=== PATIENT | female | born 1990 | race Caucasian/White ===

== ENCOUNTER 2017-04-10 07:58 | Inpatient (IN) | payer OTHER ==
[~2017-04-10] VITALS: Ht 170.2 cm; Wt 91.6 kg
[~2017-04-10 07:58] MED LIST: DOCUSATE SODIU100 M3 PO; ERYTHROMYCIN1 GM OPH; FLEXERIL10 MG PO; IBUPROFEN800 M1 PO; MULTIVITAMIN1 TAB PO; NAPROSYN 500 M500 MG PO; PERCOCET 5-3251 EACH PO; SENNA8.6 M3 PO; TOBRAMYCIN AND2.5 ML OP
[2017-04-10] MEDS ORDERED: PRENATAL TABLE1 EAC2 PO (08:41)
[2017-04-10 09:08] LABS: ABSOLUTE BASOPHIL COUNT 0 /CUMM (0.0-0.2); ABSOLUTE EOSINOPHIL COUNT 0.2 /CUMM (0.0-0.7); ABSOLUTE GRANULOCYTE CT 7.1 /CUMM (1.4-6.5); ABSOLUTE LYMPH COUNT 2.1 /CUMM (1.2-3.4); ABSOLUTE MONOCYTE COUNT 0.6 /CUMM (0.10-0.60); BASOPHIL % 0.3 % (0.0-2.0); EOSINOPHIL % 1.6 % (0-5); GRANULOCYTE % 71.7 % (42.2-75.2); HEMATOCRIT 35.5 % (37-47); MEAN CORPUSCULAR HGB 29.2 PG (27.0-31.0); MEAN CORPUSCULAR HGB CONC 34.5 G/DL (33.0-37.0); MEAN CORPUSCULAR VOLUME 84.6 FL (81.0-99.0); PLATELET COUNT 234 /CUMM (130-400); RED BLOOD CELL CT 4.19 /CUMM (4.20-5.40); WHITE BLOOD CELL COUNT 9.9 /CUMM (4.8-10.8)
--- NOTE | 2017-04-10 11:18 | History & Physical ---
General Information and HPI MD Statement: I have seen and personally examined CHAPIS MUNROE and documented this H&P. The patient is a 26 year old female at 39[] weeks and [] days gestation who presented with a chief complaint of []. History of Present Illness: 2 para 1001 I with I large for gestational age infant and inducible cervix for induction of labor Allergies/Medications Allergies: Coded Allergies: No Known Allergies (04/10/17) Home Med list Ibuprofen 800 MG TABLET 800 MG PO Q6P PRN UTERINE CRAMPING Vit No.130/Iron/FA ( Tablet) 27 MG IRON-800 MCG TABLET 1 TAB PO DAILY supplement (Reported) Past History welt maker History : 1 Para: 0 Last Menstrual Period: 10/17/14 Past welt maker History: none Medical History Neurological: NONE EENT: NONE Cardiovascular: NONE Respiratory: NONE Gastrointestinal: NONE Hepatic: NONE Renal: NONE Musculoskeletal: NONE Psychiatric: NONE Endocrine: NONE Blood Disorders: NONE Cancer(s): 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 No Contractions: Q 3 MINUTES Infant #1 - FHR Baseline: 150 Category: 1 Estimated Weight: 3900 Presentation: VTX Patient for Induction? Yes Graham Score Graham Score Response Value Cervix Position: anterior 2 Cervix Consistency: soft 2 Cervix Effacement: >80% 3 Cervix Dilation: >5 cm 3 Total 10 Labs Blood Type & Rh: O+ Antibody Screen: Negative Hct/Hgb & Platelets #1: 11 3340 Hct/Hgb & Platelets #2: 12/27/2028 Rubella: Immune VDRL #1: Nonreactive VDRL #2: Nonreactive nonreactive HbsAg: Negative HIV #1: Negative HIV #2 Negative 1 Hr P Group B Strep: Negative Initial Ultrasound: Normal Anatomy Ultrasound: Normal Genetic Testing: Normal Assessment/Plan As Ranked By This Provider Problem List: 1. Core Measures Venous Thromboembolism VTE Risk Factors / No Mechanical VTE Prophylaxis d/t N/A MechProphylax Ordered No VTE Pharm Prophylaxis d/t NA PharmProphylax ordered
--- NOTE | 2017-04-10 12:52 | Labor & Delivery Summary ---
Delivery Summary Episiotomy/Lacerations: Episiotomy/Lacerations: 2ND DEGREE Placenta: Placenta: spontanteous, normal, 3 vessel Additional Comments: VIABLE MALE OVER 2ND DEGREE. PLACENT AMI CCT INTACT EBL 500 .2ND [id number] REPAIREDS IN LAYERS UNDER EPIDURAL.
[2017-04-11 08:59] LABS: ABSOLUTE BASOPHIL COUNT 0 /CUMM (0.0-0.2); ABSOLUTE EOSINOPHIL COUNT 0.1 /CUMM (0.0-0.7); ABSOLUTE GRANULOCYTE CT 7.5 /CUMM (1.4-6.5); ABSOLUTE LYMPH COUNT 1.9 /CUMM (1.2-3.4); ABSOLUTE MONOCYTE COUNT 0.3 /CUMM (0.10-0.60); BASOPHIL % 0.2 % (0.0-2.0); EOSINOPHIL % 1.2 % (0-5); GRANULOCYTE % 75.8 % (42.2-75.2); HEMATOCRIT 33.1 % (37-47); MEAN CORPUSCULAR HGB 29.4 PG (27.0-31.0); MEAN CORPUSCULAR HGB CONC 34.3 G/DL (33.0-37.0); MEAN CORPUSCULAR VOLUME 85.6 FL (81.0-99.0); MEAN PLATELET VOLUME 8.7 FL (7.4-10.4); PLATELET COUNT 192 /CUMM (130-400); RBC DISTRIBUTION WIDTH 13.2 % (11.5-14.5); RED BLOOD CELL CT 3.87 /CUMM (4.20-5.40); WHITE BLOOD CELL COUNT 9.9 /CUMM (4.8-10.8)
[2017-04-11] MEDS ORDERED: IBUPROFEN800 M1 PO (16:20)
--- NOTE | 2017-04-11 16:23 | PN- Post Delivery/GYN ---
Subjective Subjective: WANTS TO GO HOME Objective Last 24 Hrs of Vital Signs/I&O PER PAPER CHART VSS Physical Exam: PE WELL BUILT WF IN NAD ABD SOFT FUNDUS FIRM NT EXT -HOMANS -[place]EMA Assessment/Plan Assessment/Plan ASSESS S/PNSVD PLAN CONT PPC
== END 2017-04-11 19:00 | DRG 560 ==
LOC: GNO 07:58
PROVIDERS: Specialist
PROC: 0KQM0ZZ Repair Perineum Muscle, Open Approach (ICD-10-PCS; principal; 2017-04-10)
PROC: 10E0XZZ Delivery of Products of Conception, External Approach (ICD-10-PCS; principal; 2017-04-10)
DX: O70.1 Second degree perineal laceration during delivery (principal); Z3A.40 40 weeks gestation of pregnancy; Z37.0 Single live birth
CPT/HCPCS: GNOS; 81001; 87086; G0463; J7120